=== PATIENT | female | born 1995 | race American Indian/Alaskan Native ===

== ENCOUNTER 2021-08-16 12:25 | Emergency (ER) | payer SELFPAY ==
[2021-08-16 13:19] VITALS: BP 123/67
[2021-08-16] MEDS ORDERED: IBUPROFEN 800 MG TAB PO ONE (13:19)
--- NOTE | 2021-08-16 13:59 | XRay Report ---
LEFT ANKLE 3 VIEWS INDICATION / CLINICAL INFORMATION: fall injury COMPARISON: None available. FINDINGS: BONES / JOINT(S): Spiral fracture of the distal fibula is mildly comminuted. No significant arthritis . SOFT TISSUES: Widening at the ankle mortise medially compatible with ligamentous injury. Bimalleolar soft tissue swelling. ADDITIONAL FINDINGS: None. Signer Name: Ash Rust MD Signed: 08/16/2021 1:55 PM Workstation Name: [id number]
--- NOTE | 2021-08-16 14:34 | Emergency Department Report ---
ED Extremity Problem HPI - General Chief complaint: Extremity Injury, Lower Stated complaint: ANKLE Time Seen by Provider: 08/16/21 13:16 Source: patient Mode of arrival: Wheelchair Limitations: No Limitations - History of Present Illness Initial comments: Patient is a 25-year-old F [place] female with no significant past medical history was presenting with left ankle pain. Patient was walking down some stairs and she slipped and fell and twisted her left ankle. Did not hear a loud popping sound. She is unable to bear weight. Does have some lateral swelling and tenderness. Patient has pain estimated at approximately 6 out of 10 in severity. No head injury or loss consciousness. No other complaints at this time. Severity scale (0 -10): 10 - Related Data Previous Rx's Medication Instructions Recorded Last Taken Type Ketorolac [Toradol] 10 mg PO Q6H PRN #20 tablet 08/16/21 Unknown Rx traMADoL [Ultram] 50 mg PO Q6HR PRN #10 tablet 08/16/21 Unknown Rx Allergies Allergy/AdvReac Type Severity Reaction Status Date / Time No Known Allergies Allergy Verified 08/16/21 13:05 ED Review of Systems ROS: Stated complaint: ANKLE Other details as noted in HPI Comment: All other systems reviewed and negative ED Past Medical Hx - Social History Smoking Status: Never Smoker Substance Use Type: None - Medications Home Medications: Home Medications Medication Instructions Recorded Confirmed Last Taken Type Ketorolac [Toradol] 10 mg PO Q6H PRN #20 tablet 08/16/21 Unknown Rx traMADoL [Ultram] 50 mg PO Q6HR PRN #10 tablet 08/16/21 Unknown Rx ED Physical Exam - General Limitations: No Limitations General appearance: alert, in no apparent distress - Head Head exam: Present: atraumatic, normocephalic - Eye Eye exam: Present: normal appearance - ENT ENT exam: Present: mucous membranes moist - Neck Neck exam: Present: normal inspection - Respiratory Respiratory exam: Present: normal lung sounds bilaterally. Absent: respiratory distress, wheezes, rales, rhonchi - Cardiovascular Cardiovascular Exam: Present: regular rate, normal rhythm, normal heart sounds. Absent: systolic murmur, diastolic murmur, rubs, gallop - GI/Abdominal GI/Abdominal exam: Present: soft - Extremities Exam Extremities exam: Present: normal inspection - Expanded Lower Extremity Exam Left Hip exam: Present: normal inspection, full ROM Upper Leg exam: Present: normal inspection, full ROM Knee exam: Present: normal inspection, full ROM. Absent: tenderness, swelling Ankle exam: Present: tenderness, swelling. Absent: full ROM - Back Exam Back exam: Present: normal inspection - Neurological Exam Neurological exam: Present: alert, oriented X3 - Psychiatric Psychiatric exam: Present: normal affect, normal mood - Skin Skin exam: Present: warm, dry, intact, normal color. Absent: rash ED Course Vital Signs 08/16/21 08/16/21 13:06 13:17 Temperature 98.9 F 98.0 F Pulse Rate 125 H 83 Respiratory 16 14 Rate Blood Pressure 167/80 123/67 [Left] O2 Sat by Pulse 96 99 Oximetry ED Medical Decision Making - Radiology Data [facility] [address] [place] [address] XRay Report Signed Patient: XAVIER PIRES MR#: [id number] : 1995 Acct:[id number] Age/Sex: 25 / F ADM Date: 08/16/21 Loc: ED Attending Dr: Ordering Physician: ARIELLE SANTANA MD Date of Service: 08/16/21 Procedure(s): XR ankle 3+V LT Accession Number(s): [id number] cc: ARIELLE SANTANA MD Fluoro Time In Minutes: LEFT ANKLE 3 VIEWS INDICATION / CLINICAL INFORMATION: fall injury COMPARISON: None available. FINDINGS: BONES / JOINT(S): Spiral fracture of the distal fibula is mildly comminuted. No significant arthritis. SOFT TISSUES: Widening at the ankle mortise medially compatible with ligamentous injury. Bimalleolar soft tissue swelling. ADDITIONAL FINDINGS: None. Signer Name: Ash Rust MD Signed: 08/16/2021 1:55 PM Workstation Name: [id number] - Medical Decision Making Patient placed in a short leg splint with side stirrups. Patient given crutches and given follow-up with orthopedics. Patient discharged with medications for symptomatic relief and pain. The fracture does not appear to need surgical intervention therefore the care provided today constitutes fracture care Critical care attestation.: If time is entered above; I have spent that time in minutes in the direct care of this critically ill patient, excluding procedure time. ED Disposition Clinical Impression: Fracture of distal fibula Qualifiers: Encounter type: initial encounter Fracture type: closed Fracture morphology: unspecified fracture morphology Laterality: left Qualified Code(s): S82.832A - Other fracture of upper and lower end of left fibula, initial encounter for closed fracture Disposition: 01 HOME / SELF CARE / HOMELESS Is pt being admited?: No Does the pt Need Aspirin: No Condition: Stable Instructions: Tibial and Fibular Fractures, Cast or Splint Care, Adult Referrals: ARCENIO MADDEN MD [Staff Physician] - 3-5 Days Time of Disposition: 14:34
== END 2021-08-16 14:45 | disposition home or self-care (01) ==
LOC: ED 12:25
DX: S82.832A Other fracture of upper and lower end of left fibula, initial encounter for closed fracture (principal); Z79.899 Other long term (current) drug therapy; W01.0XXA Fall on same level from slipping, tripping and stumbling without subsequent striking against object, initial encounter; Y93.89 Activity, other specified; Y92.89 Other specified places as the place of occurrence of the external cause; Y99.8 Other external cause status
CPT/HCPCS: 99283

== ENCOUNTER 2021-08-20 13:16 | Outpatient (CLI) | payer MEDICAID ==
--- NOTE | 2021-08-20 14:55 | XRay Report ---
LEFT ANKLE 3 VIEWS INDICATION: LEFT ANKLE PAIN. COMPARISON: 08/16/2021 IMPRESSION: Oblique fracture of the distal fibular shaft appears unchanged in position and alignment since 08/16/2021 exam. No calcified callus is identified consistent with an acute injury. The distal tibia and talar dome are intact. Mild widening of the medial ankle mortise UVC is again seen and sug gestive of ligamentous injury. The hindfoot is intact. There is severe diffuse soft tissue swelling. No significant change is appreciated since the previous exam. Signer Name: Denis Cosme Jr, MD Signed: 08/20/2021 2:51 PM Workstation Name: [id number]
== END 2021-08-20 13:17 | disposition home or self-care (01) ==
LOC: XRAY 13:16
PROVIDERS: ATTEND Orthopaedic Surgery
DX: S82.90XA Unspecified fracture of unspecified lower leg, initial encounter for closed fracture (principal); M79.89 Other specified soft tissue disorders; X58.XXXA Exposure to other specified factors, initial encounter; Y93.89 Activity, other specified; Y92.89 Other specified places as the place of occurrence of the external cause; Y99.8 Other external cause status

== ENCOUNTER 2021-08-23 10:29 | Day surgery (SDC) | payer MEDICAID ==
--- NOTE | 2021-08-23 11:06 | Anesthesia Day of Surgery ---
Anesthesia Day of Surgery - Day of Surgery Patient Examined: Yes Patient H&P Reviewed: Yes Patient is NPO: Yes
--- NOTE | 2021-08-23 11:07 | Anesthesia Consultation ---
Anesthesia Consult and Med Hx Date of service: 08/23/21 - Airway Anesthetic Teeth Evaluation: Chipped ROM Head & Neck: Adequate Mental/Hyoid Distance: Adequate Mallampati Class: Class II Intubation Access Assessment: Good - Pre-Operative Health Status ASA Pre-Surgery Classification: ASA2 Proposed Anesthetic Plan: General Nerve Block: Pop - Pulmonary Hx Smoking: Yes (STOPPED X 2 WEEKS- [employer]) Hx Sleep Apnea: No (KATARINA PRE SCREEN LOW RISK.) - Cardiovascular System Hx Hypertension: No - Central Nervous System Hx Psychiatric Problems: Yes (PTSD- NO MEDS) - Hematic Hx Anemia: No - Other Systems Hx Cancer: No
[2021-08-23] MEDS ORDERED: LACTATED RINGERS 1,000 ML IV SCH (11:15)
[2021-08-23] MEDS ORDERED: NEOMY 40 MG/POLYMYXIN B 200,000 UNITS/ML (GU) AMPULE IR ONE (11:22)
[2021-08-23] MEDS ORDERED: dexAMETHasone 4 MG/ML VIAL ONE (11:53)
[2021-08-23] MEDS ORDERED: BUPIVACAINE/PF (0.25%) 2.5 MG/ML 30 ML VIAL INFILTRATI ONE (11:53)
[2021-08-23] MEDS ORDERED: BUPIVACAINE/PF (0.5%) 5 MG/1 ML 30 ML VIAL INFILTRATI ONE (11:53)
[2021-08-23] MEDS ORDERED: MIDAZOLAM 2 MG/2 ML INJ IV NR (12:00)
[2021-08-23] MEDS ORDERED: fentaNYL 100 MCG/2 ML INJ IV ONE (12:05)
[2021-08-23] MEDS ORDERED: ceFAZolin/Water 2 GM/20 ML 2 GM/20 ML SYRINGE IV ONE (12:07)
[2021-08-23] MEDS ORDERED: HYDROmorphone 1 MG/1 ML INJ ONE (12:18)
[2021-08-23] MEDS ORDERED: LIDOCAINE MPF (2%) 20 MG/1 ML VIAL 5 ML ONE (12:18)
[2021-08-23] MEDS ORDERED: ONDANSETRON 4 MG/2 ML INJ ONE ×2 (12:18→14:38)
[2021-08-23] MEDS ORDERED: KETOROLAC 30 MG/1 ML INJ ONE (12:18)
[2021-08-23] MEDS ORDERED: propofoL 200 MG/20 ML VIAL IV ONE (12:19)
[2021-08-23] MEDS ORDERED: KETAMINE/STERILE WATER 50 MG/ML SYRINGE ONE (12:25)
[2021-08-23] MEDS ORDERED: ceFAZolin/STERILE WATER 2 GM/20 ML SYRINGE IV NR (13:00)
[2021-08-23] MEDS ORDERED: BUPIVACAINE/PF (0.25%) 2.5 MG/ML 10 ML VIAL INFILTRATI ONE ×3 (13:06→14:10)
[2021-08-23] MEDS ORDERED: SODIUM CHLORIDE 0.9% IRR 1,500 ML BOTTLE IR ONE (14:11)
--- NOTE | 2021-08-23 15:46 | Operative Report ---
Operative Report Operative Report: Preop diagnosis : Lateral malleolus fracture with disruption of syndesmosis, LEFT ankle Postop diagnosis: SAME Procedure: 1. Open reduction internal fixation, lateral malleolus fracture, LEFT ankle 2. Syndesmosis repair with Invisinot System , LEFT ankle Surgeon: Tha Pires MD Anesthesia: General with LMA /with additional regional block DETAILS of Operative Technique: The patient was prepared in the outpatient holding area and then brought to the operating room where she underwent a regional block along with general anesthesia utilizing an LMA. She was placed in the supine position and all pressure points were well-padded. The left leg and ankle/foot were prepped and draped in usual sterile fashion utilizing ChloraPrep solution. The extremity was then elevated, exsanguinated with an Esmarch bandage, and the tourniquet was inflated to 300 mmHg. A timeout was then called by the circulating nurse and once again the correct site was identified. C arm images were utilized throughout the entire case. The Patient was noted to have a long oblique fracture in the distal fibula above the lateral malleolus with disruption of the syndesmosis. There was no comminution. Straight lateral incision was made to expose the fracture. Dissection was carried down through the fibrofatty layer and the fracture hematoma and debris was evacuated. Utilizing fracture clamps the distal fragment was reduced to an anatomic position. Utilizing a 7 hole one third semitubular plate, the fracture was stabilized with a combination of 3.5 mm cortical and locking screws. Intraoperative C arm images confirmed anatomic alignment with rigid stabilization of the fracture. Through the hole adjacent to the proximal portion of the distal fragment the Invisiknot system was placed after drilling across the fragment and into the distal tibia all the way to the medial cortex. The small metal stay was passed through the drill hole to the medial cortex and the INVISIknot system was deployed and tightened all the way down to the plate with the ankle in neutral alignment. Final C arm images were taken and saved. These showed excellent rigid internal fixation of the fracture and temple of the syndesmosis. The wound was then irrigated copiously with normal saline. The fascial layer was closed with individual sutures of 0 Vicryl. The subcu layer was closed with 2-0 Vicryl suture and the skin was reapproximated with 3-0 nylon sutures. Xeroform dressing was then placed followed by an ABD pad which was secured with a Kerlix and an Chucky wrap. A Postop shoe was then applied. The Patient was then awakened and taken to recovery room in excellent condition. Estimated blood loss: Negligible Drains: None Complications: None Tourniquet time: 49 minutes.
[2021-08-23 17:12] VITALS: BP 143/70
--- NOTE | 2021-08-23 17:49 | Post Anesthesia Evaluation ---
- Post Anesthesia Evaluation Patient Participated: Yes Airway Patent: Yes Stable Respiratory Function: Yes Nausea/Vomiting: No Temp > 96.8F: Yes Pain Manageable: Yes Adequeate Hydration: Yes Anesthesia Complications: No Block Receding Appropriately: Not Applicable Patient on Ventilator: No
--- NOTE | 2021-08-23 18:34 | XRay Report ---
INTRAOPERATIVE FLUOROSCOPY: LEFT ANKLE INDICATION: OPEN REDUCTION INTERNAL FIXATION LATERAL LEFT ANKLE. TECHNIQUE: Intraoperative spot images were obtained during the procedure. FINDINGS: There is expected positioning of a lateral plate and multiple screws along the distal fibula with riya tomic alignment of the distal fibular fracture. Please see the operative report for further details. Fluoroscopy Time: 26.3 seconds. Fluoroscopy Images: 4. Signer Name: Сергей Harris MD Signed: 08/23/2021 6:30 PM Workstation Name: [id number]
== END 2021-08-23 16:45 | disposition home or self-care (01) ==
LOC: OR 10:29
PROVIDERS: ATTEND Orthopaedic Surgery
DX: S82.62XA Displaced fracture of lateral malleolus of left fibula, initial encounter for closed fracture (principal); Z87.891 Personal history of nicotine dependence; Z79.899 Other long term (current) drug therapy; Z98.890 Other specified postprocedural states; Z20.822 Contact with and (suspected) exposure to COVID-19; X58.XXXA Exposure to other specified factors, initial encounter; Y93.89 Activity, other specified; Y92.89 Other specified places as the place of occurrence of the external cause; Y99.8 Other external cause status
CPT/HCPCS: 27792; 27829; 36415; 64450; 73600; 84703; C1713; J0690; J1100; J1170; J1885; J2250; J2405; J2704; J3010; J3490; J7120; U0003